=== PATIENT | female | born 1950 | race Caucasian/White ===

== ENCOUNTER 2023-07-14 22:31 | Inpatient (IN) | payer MEDICARE, MEDICAID ==
[~2023-07-14] VITALS: Ht 165.1 cm; Wt 96.5 kg
[2023-07-14] MEDS ORDERED: iohexol 350MG/ML 100ml bottle IV ONE (22:45)
[2023-07-14 23:10] LABS: BASOPHILS # (AUTO) 0.1 X10'3 (0-0.2); BASOPHILS % (AUTO) 1.4 % (0-1); EOSINOPHILS # (AUTO) 0.3 X10'3 (0-0.9); HEMATOCRIT 35.4 % (35.0-45.0); HEMOGLOBIN 11.9 g/dl (12.0-16.0); LYMPHOCYTES # (AUTO) 1.3 X10'3 (1.1-4.8); MEAN CORPUSCULAR HEMOGLOBIN 31.2 PG (27.0-31.0); MEAN CORPUSCULAR HGB CONC 33.7 g/dL (33.0-36.5); MEAN CORPUSCULAR VOLUME 92.7 FL (78-98); MEAN PLATELET VOLUME 7.5 FL (7.4-10.4); MONOCYTES # (AUTO) 0.6 X10'3 (0-0.9); MONOCYTES % (AUTO) 10.4 % (2-12); NEUTROPHILS # (AUTO) 3.8 X10'3 (1.8-7.7); NEUTROPHILS % (AUTO) 62.2 % (42-75); PLATELET COUNT 169 X10'3 (140-440); RED BLOOD COUNT 3.82 X10'6 (4.20-5.60); RED CELL DISTRIBUTION WIDTH 15.4 % (11.5-14.5); WHITE BLOOD COUNT 6.1 X10'3 (4.5-11.0)
[2023-07-14 23:15] LABS: ALBUMIN 3.7 G/DL (3.4-5.0); ANION GAP 10 (8-16); BLOOD UREA NITROGEN 51 MG/DL (7-18); BUN/CREATININE RATIO 27.4 (10.0-20.0); CALCIUM 9.7 MG/DL (8.5-10.1); CHLORIDE 103 MMOL/L (99-107); CREATININE 1.86 MG/DL (0.40-0.90); GLUCOSE 127 MG/DL (70-104); POTASSIUM 3.8 MMOL/L (3.5-5.1); SODIUM 142 MMOL/L (135-145); TOTAL CARBON DIOXIDE 29.5 MMOL/L (24-32); eCRCL 24 ML/MIN; eGFR 26 ML/MIN
[2023-07-14 23:20] LABS: APTT 26 SECONDS (22-32); PROTHROMBIN TIME 10.6 SECONDS (9.0-12.0)
[2023-07-15] VITALS (8 sets, daily range): BP systolic 115–161; BP diastolic 43–89; PULSE 63–86; RESP 15–20; TEMP 97.4–98.6; O2SAT 96–97
[2023-07-15] MEDS: normal saline 1000ml 1,000 ML IV ONE (00:22)
[2023-07-15] MEDS ORDERED: magnesium 4gm in 100ml NS 100 ML IV PRN (03:45)
[2023-07-15] MEDS ORDERED: acetaminophen 325mg tablet PO PRN (03:45)
[2023-07-15] MEDS: PERFLUTREN PROTEIN-A MICROSPHR (Optison) 0.22 MG/ML 3ML VIAL IV ONE (03:45)
[2023-07-15] MEDS ORDERED: potassium Cl 40MEQ/1/2NS 520ml 520 ML IV PRN (03:45)
[2023-07-15] MEDS ORDERED: potassium Cl 20 mEq SR tablet PO PRN ×2 (03:45)
[2023-07-15] MEDS ORDERED: mag hydrox/Alum hydrox/simeth 30ml oral suspension PO PRN (03:45)
[2023-07-15] MEDS ORDERED: magnesium Cl slow-release 64mg tablet PO PRN (03:45)
[2023-07-15] MEDS ORDERED: magnesium hydroxide 30ml (MOM) UD suspension PO PRN (03:45)
[2023-07-15] MEDS ORDERED: glucagon, human recombinant 1mg kit SUBCUT PRN (03:55)
[2023-07-15] MEDS ORDERED: DEXTROSE 15 GM of carb/4 tabs (each vial/BOTTLE has 4 tablets) PO PRN ×2 (03:55)
[2023-07-15] MEDS ORDERED: dextrose 50%-water 50ml dispensing syringe IV PRN ×2 (03:55)
[2023-07-15] MEDS ORDERED: insulin Lispro (HumaLOG) vial - multi-dose SQ SCH (03:55)
[2023-07-15] MEDS ORDERED: INSULIN LISPRO 100 UNIT/ML INSULN.PEN MULTI-DOSE SQ SCH (04:00)
[2023-07-15] MEDS: MESSAGE TO PHARMACY PO ONE (04:03)
[2023-07-15] MEDS: aspirin 325mg tablet PO ONE (04:41)
[2023-07-15] MEDS: normal saline 1000ml 1,000 ML IV SCH (04:41)
[2023-07-15 06:06] LABS: MAGNESIUM 2.9 MG/DL (1.5-2.4)
[2023-07-15 06:22] LABS: HEMOGLOBIN A1C 5.3 % (4.5-6.2)
[2023-07-15] MEDS: aspirin 81mg, enteric-coated 1 TAB TABLET.DR PO SCH (07:00)
[2023-07-15 07:25] LABS: BILIRUBIN,URINE NEGATIVE (Neg); CLARITY,URINE SLIGHTLY CLOUDY (Clear); COLOR,URINE YELLOW (Yellow); GLUCOSE, URINE NEGATIVE (Neg); KETONES,URINE NEGATIVE (Neg); LEUKOCYTE ESTERASE ,URINE MODERATE (Neg); NITRITES, URINE POSITIVE (Neg); OCCULT BLOOD,URINE TRACE-INTACT (Neg); PROTEIN,URINE NEGATIVE (Neg); UROBILINOGEN,URINE 0.2 E.U/dL (0.2-1.0)
[2023-07-15 07:46] LABS: UA COLLECTION TYPE CLN CATCH MIDSTREAM
[2023-07-15 07:47] LABS: BACTERIA,URINE 4+ /HPF (Neg); MUCUS STRANDS NONE SEEN /LPF (Neg); RBC,URINE 0-2 /HPF (0-2); SQUAMOUS EPITHELIAL CELL,UR FEW /LPF (FEW); WBC,URINE 50-100 /HPF (0-4)
[2023-07-15] MEDS: enoxaparin 40mg/0.4ml syringe SUBCUT SCH (09:24)
[2023-07-15] MEDS: CefTRIAXone/D5W-Rocephin 1gm 50 ML IV SCH (13:26)
[2023-07-15] MEDS: insulin glargine (Lantus) pen - multi-dose SQ SCH (21:00)
[2023-07-16 01:55] VITALS: BP 136/51; PULSE 77; RESP 16; TEMP 97.9; O2SAT 95
[2023-07-16] MEDS: ondansetron/PF 4mg/2ml inj IV PRN (05:45)
[2023-07-16 06:48] VITALS: BP 165/69; PULSE 71; RESP 16; TEMP 97.9; O2SAT 95
[2023-07-16 07:55] LABS: BASOPHILS # (AUTO) 0.1 X10'3 (0-0.2); BASOPHILS % (AUTO) 1.1 % (0-1); EOSINOPHILS # (AUTO) 0.2 X10'3 (0-0.9); HEMATOCRIT 30.1 % (35.0-45.0); LYMPHOCYTES # (AUTO) 0.7 X10'3 (1.1-4.8); LYMPHOCYTES % (AUTO) 13.7 % (21-51); MEAN CORPUSCULAR HGB CONC 33.3 g/dL (33.0-36.5); MEAN CORPUSCULAR VOLUME 93.3 FL (78-98); MEAN PLATELET VOLUME 7.4 FL (7.4-10.4); MONOCYTES # (AUTO) 0.5 X10'3 (0-0.9); MONOCYTES % (AUTO) 8.9 % (2-12); NEUTROPHILS # (AUTO) 3.9 X10'3 (1.8-7.7); NEUTROPHILS % (AUTO) 73.3 % (42-75); PLATELET COUNT 128 X10'3 (140-440); RED BLOOD COUNT 3.23 X10'6 (4.20-5.60); RED CELL DISTRIBUTION WIDTH 14.6 % (11.5-14.5); WHITE BLOOD COUNT 5.4 X10'3 (4.5-11.0)
[2023-07-16 08:04] LABS: ANION GAP 7 (8-16); BLOOD UREA NITROGEN 21 MG/DL (7-18); BUN/CREATININE RATIO 18.4 (10.0-20.0); CALCIUM 8.8 MG/DL (8.5-10.1); CHLORIDE 114 MMOL/L (99-107); CHOL/HDL RATIO 2.6 (0.00-4.99); CHOLESTEROL 116 MG/DL (0-200); CREATININE 1.14 MG/DL (0.40-0.90); GLUCOSE 119 MG/DL (70-104); HDL CHOLESTEROL 45 MG/DL (35-60); LDL CHOLESTEROL 50 MG/DL (50-100); MAGNESIUM 2.2 MG/DL (1.5-2.4); POTASSIUM 4.3 MMOL/L (3.5-5.1); SODIUM 145 MMOL/L (135-145); TOTAL CARBON DIOXIDE 24.5 MMOL/L (24-32); TRIGLYCERIDES 121 MG/DL (20-135); eCRCL 38 ML/MIN; eGFR 46 ML/MIN
[2023-07-16] MEDS: enoxaparin 30mg/0.3ml syringe SUBCUT SCH (08:16)
[2023-07-16 10:40] VITALS: BP_SYST 123; BP_SYST 124; BP_SYST 156; BP_DIAS 61; BP_DIAS 63; BP_DIAS 77; PULSE 92; PULSE 93; PULSE 97
[2023-07-16 11:17] LABS: ALANINE AMINOTRANSFERASE 21 U/L (12-78); ALKALINE PHOSPHATASE 78 IU/L (46-116); ASPARTATE AMINO TRANSFERASE 25 U/L (10-37); BILIRUBIN,TOTAL 0.5 MG/DL (0.1-1.0); LIPASE 47 U/L (16-77); TOTAL PROTEIN 6.1 G/DL (6.4-8.2)
[2023-07-16] MEDS: pantoprazole 40mg Tablet.DR PO SCH (11:48)
[2023-07-16] MEDS ORDERED: CELE-193 PO (14:45)
[2023-07-16] MEDS ORDERED: DILT120C88 PO (14:46)
[2023-07-16] MEDS ORDERED: APIX5TAB3 PO (14:47)
[2023-07-16] MEDS ORDERED: OLME5TAB29 (14:48)
[2023-07-16] MEDS ORDERED: TRAM50TA2 PO (14:49)
[2023-07-16] MEDS ORDERED: CLON-850 PO (14:49)
[2023-07-16] MEDS ORDERED: POTA-192 PO (14:51)
[2023-07-16] MEDS ORDERED: APRE30TA5 PO (14:51)
[2023-07-16] MEDS ORDERED: ANAS1TAB49 PO (14:52)
[2023-07-16] MEDS ORDERED: FEBU80TA3 PO (14:53)
[2023-07-16] MEDS ORDERED: TORS20TA3 PO (14:55)
[2023-07-16] MEDS ORDERED: SYN0.088T PO (14:56)
[2023-07-16] MEDS ORDERED: CYAN500T71 PO (14:58)
[2023-07-16] MEDS ORDERED: MEMA5TAB PO (14:59)
[2023-07-16] MEDS ORDERED: PANT-47 PO (15:00)
[2023-07-16] MEDS ORDERED: CARI1.5C PO (15:01)
[2023-07-16] MEDS ORDERED: SERT25TA PO (15:02)
[2023-07-16] MEDS ORDERED: FLUT1BLS4 INH (15:03)
[2023-07-16] MEDS ORDERED: ROPI4TAB22 PO (15:03)
[2023-07-16] MEDS ORDERED: ONDA4TAB12 PO (15:27)
[2023-07-16] MEDS ORDERED: LACT1CAP26 PO (15:27)
[2023-07-16] MEDS ORDERED: CEFD300C3 PO (15:27)
== END 2023-07-16 17:10 | disposition home or self-care (01) | DRG 304 ==
LOC: ER 22:32 → ED HOLD 07-15 03:46 → ORTHO 4S 07-15 07:15
PROVIDERS: ADMIT Surgery Surgical Critical Care; ATTEND Family Medicine
PROC: B33 Imaging, Upper Arteries, Magnetic Resonance Imaging (MRI) (ICD-10-PCS; principal; 2023-07-15)
DX: I16.1 Hypertensive emergency (principal); N17.0 Acute kidney failure with tubular necrosis; G45.9 Transient cerebral ischemic attack, unspecified; N39.0 Urinary tract infection, site not specified; I48.91 Unspecified atrial fibrillation; N18.9 Chronic kidney disease, unspecified; E66.9 Obesity, unspecified; E78.00 Pure hypercholesterolemia, unspecified; E11.22 Type 2 diabetes mellitus with diabetic chronic kidney disease; I12.9 Hypertensive chronic kidney disease with stage 1 through stage 4 chronic kidney disease, or unspecified chronic kidney disease; Z88.5 Allergy status to narcotic agent; Z88.1 Allergy status to other antibiotic agents; Z95.0 Presence of cardiac pacemaker; Z68.35 Body mass index [BMI] 35.0-35.9, adult; Z88.2 Allergy status to sulfonamides; Z90.710 Acquired absence of both cervix and uterus
CPT/HCPCS: 36415; 70450; 70544; 70551; 71045; 80048; 80061; 81001; 82247; 82948; 83036; 83690; 83735; 84075; 84155; 84450; 84460; 85025; 85610; 85730; 86885; 86900; 86901; 87077; 87081; 87088; 87186; 93005; 93306; 93880; 96360; 97161; 97530; 99285; A4615; G0378; J0696; J1650; J1815; J2405; J3490; J7030; Q9967

== ENCOUNTER 2024-08-31 15:11 | Emergency (ER) | payer MEDICARE, MEDICAID ==
[~2024-08-31] VITALS: Ht 165.1 cm; Wt 105.2 kg
[~2024-08-31 15:11] MED LIST: ANAS1TAB49 PO; APIX5TAB3 PO; APRE30TA5 PO; CARI1.5C PO; CELE-193 PO; CLON-850 PO; CYAN500T71 PO; DILT120C88 PO; FEBU80TA6 PO; FLUT1BLS4 INH; LACT1CAP26 PO; MEMA5TAB PO; OLME5TAB29; ONDA-243 PO; PANT-47 PO; POTA-192 PO; ROPI4TAB22 PO; SERT25TA PO; SYN0.088T PO; TORS20TA3 PO; TRAM50TA2 PO
[2024-08-31 15:29] VITALS: BP 117/63; PULSE 68; RESP 18; O2SAT 93
[2024-08-31 15:58] LABS: BILIRUBIN,URINE NEGATIVE (Neg); CLARITY,URINE SLIGHTLY CLOUDY (Clear); COLOR,URINE YELLOW (Yellow); GLUCOSE, URINE NEGATIVE (Neg); KETONES,URINE NEGATIVE (Neg); LEUKOCYTE ESTERASE ,URINE SMALL (Neg); NITRITES, URINE POSITIVE (Neg); OCCULT BLOOD,URINE NEGATIVE (Neg); PROTEIN,URINE NEGATIVE (Neg)
[2024-08-31 16:04] LABS: UA COLLECTION TYPE CLN CATCH MIDSTREAM
[2024-08-31 16:05] LABS: BACTERIA,URINE 4+ /HPF (Neg); MUCUS STRANDS NONE SEEN /LPF (Neg); RBC,URINE 0-2 /HPF (0-2); SQUAMOUS EPITHELIAL CELL,UR FEW /LPF (FEW); WBC CLUMPS,URINE FEW /HPF (NEGATIVE)
--- NOTE | 2024-08-31 19:02 | Physician Documentation ---
History of Present Illness ~ Chief Complaint: Urinary Symptoms Stated Complaint: KIDNEY PAIN Time Seen by MD: 18:12 OK to notify your PCP?: Yes Source: patient Mode of Arrival: POV Exam Limitations: no limitations DANNY Daley is a 74-year-old female with bilateral flank pain for the past 3-4 days. She has been admitted twice last year for urinary tract infections. She states that she never has any bladder/urinary symptoms and can tell when she has a urinary urinary tract infection once she has flank pain. She reports having a fever last night and was also nauseous which she self treated with Zofran and had relief. Denies any abdominal pain, pain with urination or diarrhea. She mentions that she has stage 3 kidney disease. Medication Reconciliation Allergies: Coded Allergies: erythromycin base (Unverified Allergy, Severe, ANAPHYLAXIS, 10/08/23) Sulfa (Sulfonamide Antibiotics) (Unverified Allergy, Intermediate, HIVES, 10/08/23) tetanus and diphtheria toxoids (Unverified Allergy, Intermediate, HIVES, 10/08/23) codeine (Verified Allergy, Unknown, 10/08/23) Uncoded Allergies: ERYTHROMYCIN (Allergy, Unknown, 07/14/23) SULFA (Allergy, Unknown, 07/14/23) Scheduled Anastrozole (Arimidex), 1 TAB PO DAILY, (Reported) Apixaban (Eliquis), 5 MG PO BID, (Reported) Apremilast (Otezla), 1 TAB PO Q12H, (Reported) Cariprazine Hydrochloride (Vraylar), 1 CAP PO MWF, (Reported) Celecoxib* (Celebrex*), 100 MG PO BID, (Reported) Ciprofloxacin HCl (Cipro), 1 TAB PO Q12H Cyanocobalamin* (Vitamin B-12*), 2 TAB PO BID, (Reported) Diltiazem Hcl (Cardizem Cd), 1 CAP PO DAILY, (Reported) Febuxostat (Febuxostat), 1 TAB PO DAILY, (Reported) Fluticasone/Umeclidin/Vilanter (Trelegy Ellipta 100-62.5-25), 1 PUFFS INH DAILY, (Reported) Lactobacillus Rhamnosus (Culturelle), 1 CAP PO DAILY Levothyroxine Sodium* (Synthroid*), 1 TAB PO DAILY, (Reported) Memantine Hcl* (Namenda*), 2 TAB PO BID, (Reported) Olmesartan Medoxomil (Olmesartan Medoxomil), DAILY, (Reported) Pantoprazole Sodium (PROTONIX tablet), 1 TAB PO DAILY, (Reported) Potassium Chloride (Klor-Con), 2 TAB PO BID, (Reported) Ropinirole Hcl (Ropinirole Hcl), 1 TAB PO TID, (Reported) Sertraline Hcl* (Zoloft*), 4 TAB PO DAILY, (Reported) Scheduled PRN Clonazepam (Klonopin), 1 TAB PO HSMR1 PRN for anxiety, (Reported) ONDANSETRON ODT 4mg tablet (Ondansetron Odt), 4 MG PO TID PRN for nausea/vomiting Torsemide (Torsemide), 2 TAB PO DAILY PRN for SOB or wheezing, (Reported) Tramadol HCl (Tramadol HCl), 1 TAB PO Q12H PRN PRN for pain, (Reported) Discontinued Medications Ciprofloxacin/Ciprofloxa Hcl (Ciprofloxacin Er 500 Mg Tablet), 1 TAB PO Q12H Discontinued Reason: Other Past Medical History Past Medical History: Atrial Fibrillation, Renal Disease Past Surgical History: noncontributory Smoking Status: Former smoker Alcohol Use: None Drug Use: none Lives with: Spouse Lives In: Home Occupation: retired Review of Systems All Other Systems at this time: Reviewed and Negative Physical Exam Vital Signs: RN Vital Signs have been reviewed: Yes, Temperature: 97.5, Source: Oral, Heart Rate: 68, Respiratory Rate: 18, BP: 117/63, Pulse Oximetry: 93, Weight: 105.230 Physical Exam General: conscious, coherent, non-toxic appearing, follows commands appropriately and in no apparent distress. Skin: Warm and dry without rash, good texture, and turgor. Chest: Good expansion without retractions or grunting. Lungs are clear to ausc ultation bilaterally. Heart: Regular rate and rhythm. S1 and S2 are normal. No murmurs, rubs, clicks, or gallops heard. Abdomen: Soft, nontender, no masses or organomegaly. Bowel sounds are active. Back: No spinal tenderness. Bilateral costovertebral angle tenderness. Extremities: Full range of motion. Good strength, bilaterally. No cyanosis, clubbing or edema. Peripheral pulses are intact. Neurologic: A&Ox4. Motor and sensory exam nonfocal. Moves all extremities. Speech is clear. Gait normal. CN II to XII intact. Progress Results/Orders Reviewed/noted all lab results: Yes Results/Orders Completed Orders - KIMBERLY BOWMAN [employer] Acetaminophen 325mg Tablet (Tylenol Tabl (08/31/24 18:25) Cbc/Diff (08/31/24 18:24) CMP (08/31/24 18:24) Ceftriaxone 2gm/D5w 50ml Bag (Rocephin 2 (08/31/24 18:25) Normal Saline 1000ml (Sodium Chloride 10 (08/31/24 18:25) Vital Signs 08/31/24 08/31/24 15:29 21:02 Temp 97.5 97.5 Pulse 68 Resp 18 B/P (MAP) 117/63 Pulse Ox 93 Laboratory Tests Test 08/31/24 15:34 08/31/24 19:13 Urine Specimen Description Cln catch midstream Urine Color Yellow Urine Clarity Slightly cloudy Urine pH 6.0 Urine Specific [place] 1.015 Urine Protein Negative Urine Glucose (UA) Negative Urine Ketones Negative Urine Occult Blood Negative Urine Nitrite Positive H Urine Bilirubin Negative Urine Urobilinogen 1.0 Urine Leukocyte Esterase Small H Urine RBC 0-2 Urine WBC 5-10 H Urine WBC Clumps Few Urine Squamous Epithelial Cells Few Urine Bacteria 4+ Urine Mucus None seen Urine Culture Indicated Indicated Volume Urine Centrifuged 10 ml Urine Comment White Blood Count 5.6 Red Blood Count 3.60 L Hemoglobin 11.6 L Hematocrit 34.0 L Mean Corpuscular Volume 94.5 Mean Corpuscular Hemoglobin 32.3 H Mean Corpuscular Hemoglobin Concent 34.1 Red Cell Distribution Width 15.1 H Platelet Count 132 L Mean Platelet Volume 7.2 L Neutrophils (%) (Auto) 77.5 H Lymphocytes (%) (Auto) 12.5 L Monocytes (%) (Auto) 8.8 Eosinophils (%) (Auto) 0.8 Basophils (%) (Auto) 0.4 Neutrophils # (Auto) 4.3 Lymphocytes # (Auto) 0.7 L Monocytes # (Auto) 0.5 Eosinophils # (Auto) 0.0 Basophils # (Auto) 0.0 CBC Comment Sodium Level 147 H Potassium Level 3.8 Chloride Level 108 H Carbon Dioxide Level 29.6 Anion Gap 9 Blood Urea Nitrogen 23 H Creatinine 1.29 H Estimated GFR/1.73 m2 40 BUN/Creatinine Ratio 17.8 Glucose Level 105 H Calcium Level 8.6 Total Bilirubin 1.2 H Aspartate Amino Transf (AST/SGOT) 24 Alanine Aminotransferase (ALT/SGPT) 26 Alkaline Phosphatase 95 Total Protein 6.5 Albumin 3.4 Globulin 3.1 Albumin/Globulin Ratio 1.1 Chemistry Comments Microbiology Date/Time Source Procedure Growth Status 08/31/24 16:05 Urine Clean Catch Midstream Urine Culture - Final Klebsiella Pneumoniae Complete Medical Decision Making Findings Thuy is a 74-year-old female presenting with bilateral flank pain for the past 3-4 days. She was admitted twice last year for urinary tract infections which required IV antibiotics. Last night she had a fever and nausea which he treated with Zofran at home. She otherwise looks nontoxic is afebrile and not tachycardic. I consulted with Dr. Hooker regarding this patient and the possible need for admission versus outpatient treatment to her age and history. He recommended we give IV Rocephin get a CBC and CMP, give Iv fluids and Toradol for pain relief which were all ordered. Due to this patient's history of kidney disease, Tylenol was ordered instead for pain relief. Her CBC is negative for infection, her CMP shows some mild dehydration and elevated BUN and creatinine with a GFR of 40 which is consistent with her history of having kidney disease. Her urinalysis is positive for UTI with positive nitrites, leukocyte esterase, WBCs and a urine culture was ordered and indicated. Using shared decision-making with the patient she is comfortable with going home on oral antibiotics with strict return instructions should she become altered, have a fever, malaise, or any new or worsening symptoms. She should follow up with her primary care provider and get a repeat urinalysis after her antibiotics are finished to make sure the infection is cleared. She understands that her culture for the urine takes about 3 days or so to grow and we will call her if the antibiotic I prescribed shows resistance. When looking at her previous urine culture, no resistance was shown to any of the antibiotics so I am optimistic that there will be no resistance to the ciprofloxacin. We also discussed that ciprofloxacin increases your risk of tendon rupture especially in the Achilles tendon up to 6 months after starting the antibiotic a nd she agrees to this risk. She should treat her pain with Tylenol at home not ibuprofen and she agrees with this as well. She was advised to take all antibiotics as prescribed and finish the course and take a probiotic as well to mitigate the risk of GI upset from this antibiotic. Urinary Diff Dx:Considerations: Include: Musculoskeletal pain, Renal failure, Urolithiasis, Urinary retention, UTI Departure Disposition: HOME / SELF CARE / HOMELESS Impression: Primary Impression: Acute pyelonephritis Condition: Stable Additional Instructions: Please take antibiotics as prescribed and finish the course. Follow up with your primary care provider in the next 3 days. You have been warned that there is an increased risk with this medication of Achilles rupture or other tendon rupture up to 6 months after taking this medication. Please return to us if you have any new or worsening symptoms, fevers, altered level of consciousness, or fast heart rate. Plenty of fluids, take a probiotic as well. Referrals: NO PRIMARY CARE PROVIDER (PCP) Prescriptions Ciprofloxacin HCl (Cipro) 500 Mg Tablet 1 TAB PO Q12H for 10 Days, #20 TAB Prov: KIMBERLY BOWMAN 08/31/24 Education Educated: Patient Educated regarding: diagnosis, treatment, prognosis, need for follow up Signature Scribe Signature: . Attestation: Scribed for Kimberly Bowman by Kimberly Lugo NP . 09/03/24 15:01 KIMBERLY BOWMAN August 31, 2024 19:02
[2024-08-31] MEDS: normal saline 1000ML IV soln IVB ONE (19:06)
[2024-08-31] MEDS: acetaminophen 325mg tablet PO ONE (19:06)
[2024-08-31 19:20] LABS: BASOPHILS % (AUTO) 0.4 % (0-1); EOSINOPHILS % (AUTO) 0.8 % (0-6); HEMOGLOBIN 11.6 g/dl (12.0-16.0); LYMPHOCYTES # (AUTO) 0.7 X10'3 (1.1-4.8); LYMPHOCYTES % (AUTO) 12.5 % (21-51); MEAN CORPUSCULAR HEMOGLOBIN 32.3 PG (27.0-31.0); MEAN CORPUSCULAR HGB CONC 34.1 g/dL (33.0-36.5); MEAN CORPUSCULAR VOLUME 94.5 FL (78-98); MEAN PLATELET VOLUME 7.2 FL (7.4-10.4); MONOCYTES # (AUTO) 0.5 X10'3 (0-0.9); MONOCYTES % (AUTO) 8.8 % (2-12); NEUTROPHILS # (AUTO) 4.3 X10'3 (1.8-7.7); NEUTROPHILS % (AUTO) 77.5 % (42-75); PLATELET COUNT 132 X10'3 (140-440); RED CELL DISTRIBUTION WIDTH 15.1 % (11.5-14.5); WHITE BLOOD COUNT 5.6 X10'3 (4.5-11.0)
[2024-08-31 19:41] LABS: ALANINE AMINOTRANSFERASE 26 U/L (12-78); ALBUMIN 3.4 G/DL (3.4-5.0); ALBUMIN/GLOBULIN RATIO 1.1 (1.1-1.5); ALKALINE PHOSPHATASE 95 IU/L (46-116); ANION GAP 9 (8-16); ASPARTATE AMINO TRANSFERASE 24 U/L (10-37); BILIRUBIN,TOTAL 1.2 MG/DL (0.1-1.0); BLOOD UREA NITROGEN 23 MG/DL (7-18); BUN/CREATININE RATIO 17.8 (10.0-20.0); CALCIUM 8.6 MG/DL (8.5-10.1); CHLORIDE 108 MMOL/L (99-107); CREATININE 1.29 MG/DL (0.40-0.90); GLUCOSE 105 MG/DL (70-104); POTASSIUM 3.8 MMOL/L (3.5-5.1); SODIUM 147 MMOL/L (135-145); TOTAL CARBON DIOXIDE 29.6 MMOL/L (24-32); TOTAL PROTEIN 6.5 G/DL (6.4-8.2); eCRCL 33 ML/MIN; eGFR 40 ML/MIN
[2024-08-31] MEDS: CefTRIAXone 2gm/D5W 50ml BAG 50 ML IV ONE (19:56)
[2024-08-31] MEDS ORDERED: CIPR-20 PO (20:52)
[2024-08-31] MEDS ORDERED: CIPR-259 PO (20:55)
[2024-08-31 21:02] VITALS: TEMP 97.5
== END 2024-08-31 21:03 | disposition home or self-care (01) ==
LOC: ER 15:11
DX: N10 Acute pyelonephritis (principal); I48.91 Unspecified atrial fibrillation; Z88.1 Allergy status to other antibiotic agents; Z88.2 Allergy status to sulfonamides; Z88.5 Allergy status to narcotic agent; Z79.899 Other long term (current) drug therapy
CPT/HCPCS: 36415; 80053; 81001; 85025; 87077; 87088; 87186; 96361; 96365; 99284; J0696; J7030

== ENCOUNTER 2024-09-25 13:54 | Inpatient (IN) | payer MEDICARE, MEDICAID ==
[~2024-09-25] VITALS: Ht 165.1 cm; Wt 104.5 kg
[2024-09-25 15:08] LABS: BASOPHILS % (AUTO) 0.9 % (0-1); EOSINOPHILS # (AUTO) 0.1 X10'3 (0-0.9); EOSINOPHILS % (AUTO) 2.2 % (0-6); HEMOGLOBIN 11.1 g/dl (12.0-16.0); LYMPHOCYTES # (AUTO) 0.9 X10'3 (1.1-4.8); LYMPHOCYTES % (AUTO) 17.6 % (21-51); MEAN CORPUSCULAR HEMOGLOBIN 31.3 PG (27.0-31.0); MEAN CORPUSCULAR HGB CONC 33.5 g/dL (33.0-36.5); MEAN CORPUSCULAR VOLUME 93.3 FL (78-98); MEAN PLATELET VOLUME 7.5 FL (7.4-10.4); MONOCYTES # (AUTO) 0.4 X10'3 (0-0.9); MONOCYTES % (AUTO) 8.5 % (2-12); NEUTROPHILS # (AUTO) 3.6 X10'3 (1.8-7.7); NEUTROPHILS % (AUTO) 70.8 % (42-75); PLATELET COUNT 119 X10'3 (140-440); RED BLOOD COUNT 3.54 X10'6 (4.20-5.60); RED CELL DISTRIBUTION WIDTH 14.7 % (11.5-14.5); WHITE BLOOD COUNT 5.1 X10'3 (4.5-11.0)
[2024-09-25 15:23] LABS: ALANINE AMINOTRANSFERASE 22 U/L (12-78); ALBUMIN 3.2 G/DL (3.4-5.0); ALKALINE PHOSPHATASE 79 IU/L (46-116); ANION GAP 8 (8-16); ASPARTATE AMINO TRANSFERASE 21 U/L (10-37); BILIRUBIN,TOTAL 1.1 MG/DL (0.1-1.0); BLOOD UREA NITROGEN 18 MG/DL (7-18); BUN/CREATININE RATIO 17.6 (10.0-20.0); CALCIUM 8.8 MG/DL (8.5-10.1); CHLORIDE 106 MMOL/L (99-107); CREATININE 1.02 MG/DL (0.40-0.90); GLUCOSE 103 MG/DL (70-104); LIPASE 45 U/L (16-77); POTASSIUM 3.4 MMOL/L (3.5-5.1); SODIUM 145 MMOL/L (135-145); TOTAL CARBON DIOXIDE 30.6 MMOL/L (24-32); TOTAL PROTEIN 6.5 G/DL (6.4-8.2); eCRCL 42 ML/MIN; eGFR 53 ML/MIN
--- NOTE | 2024-09-25 15:31 | Physician Documentation ---
History of Present Illness Chief Complaint: Abdominal Pain Stated Complaint: DIVERTICULITIS Time Seen by MD: 14:29 HPI This is a 74-year-old female with history of diverticulitis it presents with three days of progressively worsening left lower quadrant abdominal pain that she describes similar to previous episodes of diverticulitis, patient reports small hard stools in the past three days as well though is passing stool and gas still. Patient reports no vomiting. Patient reports chills but no fever. Medication Reconciliation Allergies: Coded Allergies: erythromycin base (Unverified Allergy, Severe, ANAPHYLAXIS, 10/08/23) Sulfa (Sulfonamide Antibiotics) (Unverified Allergy, Intermediate, HIVES, 10/08/23) tetanus and diphtheria toxoids (Unverified Allergy, Intermediate, HIVES, 10/08/23) codeine (Verified Allergy, Unknown, 10/08/23) Uncoded Allergies: ERYTHROMYCIN (Allergy, Unknown, 07/14/23) SULFA (Allergy, Unknown, 07/14/23) Scheduled Apixaban (Eliquis), 5 MG PO BID, (Reported) Cariprazine Hydrochloride (Vraylar), 1 CAP PO MWF, (Reported) Cyanocobalamin* (Vitamin B-12*), 2 TAB PO BID, (Reported) Diltiazem Hcl (Cardizem Cd), 1 CAP PO DAILY, (Reported) Fluticasone/Umeclidin/Vilanter (Trelegy Ellipta 100-62.5-25), 1 PUFFS INH DAILY, (Reported) Lactobacillus Rhamnosus (Culturelle), 1 CAP PO DAILY Levothyroxine Sodium* (Synthroid*), 1 TAB PO DAILY, (Reported) Memantine Hcl* (Namenda*), 2 TAB PO BID, (Reported) Olmesartan Medoxomil (Olmesartan Medoxomil), DAILY, (Reported) Potassium Chloride (Klor-Con), 2 TAB PO BID, (Reported) Ropinirole Hcl (Ropinirole Hcl), 1 TAB PO TID, (Reported) Sertraline Hcl* (Zoloft*), 4 TAB PO DAILY, (Reported) Scheduled PRN Clonazepam (Klonopin), 1 TAB PO HSMR1 PRN for anxiety, (Reported) ONDANSETRON ODT 4mg tablet (Ondansetron Odt), 4 MG PO TID PRN for nausea/vomiting Torsemide (Torsemide), 2 TAB PO DAILY PRN for SOB or wheezing, (Reported) Tramadol HCl (Tramadol HCl), 1 TAB PO Q12H PRN PRN for pain, (Reported) Discontinued Medications Anastrozole (Arimidex), 1 TAB PO DAILY, (Reported) Discontinued Reason: patient no longer taking Apremilast (Otezla), 1 TAB PO Q12H, (Reported) Discontinued Reason: patient no longer taking Celecoxib* (Celebrex*), 100 MG PO BID, (Reported) Discontinued Reason: patient no longer taking Febuxostat (Febuxostat), 1 TAB PO DAILY, (Reported) Discontinued Reason: patient no longer taking Pantoprazole Sodium (PROTONIX tablet), 1 TAB PO DAILY, (Reported) Discontinued Reason: patient no longer taking Past Medical History Past Medical History: Atrial Fibrillation, Diverticulitis, Renal Disease Past Surgical History: noncontributory Alcohol Use: None Drug Use: none Lives with: Spouse Lives In: Home Occupation: retired Review of Systems ROS Lower quadrant abdominal pain as stated above in the HPI, otherwise all systems are reviewed and negative. Physical Exam Vital Signs: Temperature: 97.6, Source: Temporal, Heart Rate: 73, Respiratory Rate: 15, BP: 149/59, Pulse Oximetry: 95, Weight: 104.550 Oxygen Flow Rate: 0 Physical Exam VITALS: Reviewed and as above. GENERAL: Alert, nontoxic appearing, no apparent distress. RESPIRATORY: No increased work of breathing, no respiratory distress, speaking in full clear sentences, clear lung sounds in all singh CV: Regular rate and rhythm no murmur BACK: No CVA tenderness GI: Left lower quadrant tender to palpation, no rebound, no guarding. Soft, nondistended, bowel sounds present Progress Progress Note At approximately 1928: I spoke with hospitalist resident Dr. Capps who kindly accepts patient for admission Results/Orders Results/Orders Vital Signs 09/25/24 09/25/24 14:00 14:31 Temp 97.6 Pulse 73 Resp 18 15 B/P (MAP) 149/59 Pulse Ox 95 O2 Flow Rate 0 Laboratory Tests Test 09/25/24 14:54 White Blood Count 5.1 Red Blood Count 3.54 L Hemoglobin 11.1 L Hematocrit 33.0 L Mean Corpuscular Volume 93.3 Mean Corpuscular Hemoglobin 31.3 H Mean Corpuscular Hemoglobin Concent 33.5 Red Cell Distribution Width 14.7 H Platelet Count 119 L Mean Platelet Volume 7.5 Neutrophils (%) (Auto) 70.8 Lymphocytes (%) (Auto) 17.6 L Monocytes (%) (Auto) 8.5 Eosinophils (%) (Auto) 2.2 Basophils (%) (Auto) 0.9 Neutrophils # (Auto) 3.6 Lymphocytes # (Auto) 0.9 L Monocytes # (Auto) 0.4 Eosinophils # (Auto) 0.1 Basophils # (Auto) 0.0 CBC Comment Sodium Level 145 Potassium Level 3.4 L Chloride Level 106 Carbon Dioxide Level 30.6 Anion Gap 8 Blood Urea Nitrogen 18 Creatinine 1.02 H Estimated GFR/1.73 m2 53 BUN/Creatinine Ratio 17.6 Glucose Level 103 Calcium Level 8.8 Total Bilirubin 1.1 H Aspartate Amino Transf (AST/SGOT) 21 Alanine Aminotransferase (ALT/SGPT) 22 Alkaline Phosphatase 79 Total Protein 6.5 Albumin 3.2 L Globulin 3.3 Albumin/Globulin Ratio 1.0 L Lipase 45 Chemistry Comments EKG/XRAY/CT/US/VASC/MRI CT : Impression EXAM: CT Abdomen and Pelvis With Intravenous Contrast CLINICAL INDICATION: Left lower quadrant abdominal pain,History of diverticulosis and diverticul TECHNIQUE: Axial computed tomography images of the abdomen and pelvis with intravenous contrast. This CT exam was performed using one or more of the following dose reduction techniques: automated exposure control, adjustment of the mA and/or kV according to patient size, and/or use of iterative reconstruction technique. CONTRAST: COMPARISON: None FINDINGS: LUNG BASES: Unremarkable. No mass. No consolidation. MEDIASTINUM: Small esophageal hiatal hernia. ABDOMEN: LIVER: Hepatomegaly with fatty infiltration. GALLBLADDER AND BILE DUCTS: Unremarkable. No calcified stones. No ductal dilation. PANCREAS: Unremarkable. No mass. No ductal dilation. SPLEEN: Unremarkable. No splenomegaly. ADRENALS: Unremarkable. No mass. KIDNEYS AND URETERS: Renal cysts, bilaterally. No hydronephrosis. STOMACH AND BOWEL: Mild acute diverticulitis of the sigmoid colon. No perforation, abscess or obstruction. Fecal retention in the colon consistent with constipation. PELVIS: APPENDIX: No findings to suggest acute appendicitis. BLADDER: Unremarkable. No mass. REPRODUCTIVE: Unremarkable as visualized. ABDOMEN and PELVIS: INTRAPERITONEAL SPACE: Unremarkable. No free air. No significant fluid collection. BONES/JOINTS: No acute fracture. No dislocation. SOFT TISSUES: Unremarkable. VASCULATURE: Scattered calcified atherosclerotic disease of aorta. No abdominal aortic aneurysm. LYMPH NODES: Unremarkable. No enlarged lymph nodes. OTHER FINDINGS: . . . IMPRESSION: 1. Mild acute diverticulitis of the sigmoid colon. No perforation, abscess or obstruction. 2. Small esophageal hiatal hernia. 3. Hepatomegaly with fatty infiltration. 4. Fecal retention in the colon consistent with constipation. 5. Renal cysts, bilaterally. Electronically Signed by:JOSETTE MEADE MD Date & Time: 09/25/241704 Dictated by: JOSETTE MEADE MD Dictation date and time: 09/25/241704 I have reviewed and agree with the radiology report. I have reviewed and interpreted the imaging as: no intraperitoneal free air Medical Decision Making Findings This is a 74-year-old female with history of diverticulitis who presented with left lower quadrant abdominal pain described in the pain is similar to previous sepsis diverticulitis, CT was obtained and did demonstrate evidence of diverticulitis without perforation or abscess, patient's lab work did not demonstrate evidence of systemic infection or electrolyte or metabolic derangement. Patient is hemodynamically stable and afebrile. Patient would benefit from inpatient admission for IV antibiotics and pain management, with shared decision-making patient has a preference for inpatient admission. Hospitalist team contacted and kindly accepts patient for admission. Differential Dx:Considerations: Include: Bowel obstruction, Cholangitis, Cholelithasis, Constipation, Diverticular disease, Esophageal rupture, Esophagitis, Gastritis/PUD, Gastroenteritis, Hernia, Inflammatory BD, Pancreatitis, Urinary obstruction, Urinary tract infection, Urolithiasis, Other (Bowel perforation, bowel abscess) Departure Disposition: 09 ADMITTED INPATIENT Admitted to Inpatient Unit: to hospitalist Impression: Primary Impression: Diverticulitis large intestine w/o perforation or abscess w/bleeding Referrals: NO PRIMARY CARE PROVIDER (PCP) Education Educated: Patient Educated regarding: diagnosis, treatment, prognosis, need for follow up Signature Scribe Signature: No scribe Attestation: The note accurately reflects work and decisions made by me.TRUONG Cheng 09/26/24 03:14 KELLEY TORRES Sep 25, 2024 15:31
[2024-09-25] MEDS ORDERED: iohexol 300mg/ml 100ml inj. ONE (16:06)
--- NOTE | 2024-09-25 17:08 | RADIOLOGY REPORT ---
EXAM: CT Abdomen and Pelvis With Intravenous Contrast CLINICAL INDICATION: Left lower quadrant abdominal pain,History of diverticulosis and diverticul TECHNIQUE: Axial computed tomography images of the abdomen and pelvis with intravenous contrast. [facility] CT exam was performed using one or more of the following dose reduction techniques: automated exp osure control, adjustment of the mA and/or kV according to patient size, and/or use of iterative donte nstruction technique. CONTRAST: COMPARISON: None FINDINGS: LUNG BASES: Unremarkable. No mass. No consolidation. MEDIASTINUM: Small esophageal hiatal hernia. ABDOMEN: LIVER: Hepatomegaly with fatty infiltration. GALLBLADDER AND BILE DUCTS: Unremarkable. No calcified stones. No ductal dilation. PANCREAS: Unremarkable. No mass. No ductal dilation. SPLEEN: Unremarkable. No splenomegaly. ADRENALS: Unremarkable. No mass. KIDNEYS AND URETERS: Renal cysts, bilaterally. No hydronephrosis. STOMACH AND BOWEL: Mild acute diverticulitis of the sigmoid colon. No perforation, abscess or obst ruction. Fecal retention in the colon consistent with constipation. PELVIS: APPENDIX: No findings to suggest acute appendicitis. BLADDER: Unremarkable. No mass. REPRODUCTIVE: Unremarkable as visualized. ABDOMEN and PELVIS: INTRAPERITONEAL SPACE: Unremarkable. No free air. No significant fluid collection. BONES/JOINTS: No acute fracture. No dislocation. SOFT TISSUES: Unremarkable. VASCULATURE: Scattered calcified atherosclerotic disease of aorta. No abdominal aortic aneurysm. LYMPH NODES: Unremarkable. No enlarged lymph nodes. OTHER FINDINGS: . . . IMPRESSION: 1. Mild acute diverticulitis of the sigmoid colon. No perforation, abscess or obstruction. 2. Small esophageal hiatal hernia. 3. Hepatomegaly with fatty infiltration. 4. Fecal retention in the colon consistent with constipation. 5. Renal cysts, bilaterally.
[2024-09-25] MEDS: CefTRIAXone 2gm/D5W 50ml BAG 50 ML IV ONE (19:16)
[2024-09-25] MEDS: acetaminophen 1,000mg/100ml IV 100 ML IV SCH (19:17)
[2024-09-25] MEDS: metroNIDAZOLE-Flagyl 500mg/NS 100 ML IV ONE (19:17)
[2024-09-25 21:25] LABS: BILIRUBIN,URINE NEGATIVE (Neg); CLARITY,URINE CLEAR (Clear); COLOR,URINE YELLOW (Yellow); GLUCOSE, URINE NEGATIVE (Neg); KETONES,URINE NEGATIVE (Neg); LEUKOCYTE ESTERASE ,URINE NEGATIVE (Neg); NITRITES, URINE NEGATIVE (Neg); OCCULT BLOOD,URINE NEGATIVE (Neg); PROTEIN,URINE NEGATIVE (Neg)
[2024-09-25 21:30] VITALS: BP 157/43; PULSE 73; RESP 16; TEMP 98.3; O2SAT 96
[2024-09-25 21:31] LABS: UA COLLECTION TYPE CLN CATCH MIDSTREAM
[2024-09-25 22:00] VITALS: RESP 18; O2SAT 95
[2024-09-25] MEDS ORDERED: acetaminophen 325mg tablet PO PRN (22:35)
[2024-09-25] MEDS ORDERED: potassium Cl 20 mEq SR tablet PO PRN (22:35)
[2024-09-25] MEDS ORDERED: magnesium hydroxide 30ml (MOM) UD suspension PO PRN (22:35)
[2024-09-25] MEDS ORDERED: morphine 2 MG/ML inj. syringe IV PRN (22:35)
[2024-09-25] MEDS ORDERED: potassium Cl 40MEQ/1/2NS 520ml 520 ML IV PRN (22:35)
[2024-09-25] MEDS ORDERED: magnesium Cl slow-release 64mg tablet PO PRN (22:35)
[2024-09-25] MEDS ORDERED: magnesium sulf-water 2g/50mL 50 ML IV PRN (22:35)
[2024-09-25] MEDS ORDERED: mag hydrox/Alum hydrox/simeth 30ml oral suspension PO PRN (22:35)
[2024-09-25] MEDS ORDERED: magnesium sulf-water 4G/100mL 100 ML IV PRN (22:35)
[2024-09-25] MEDS ORDERED: HYDROcodone/acetaminophen 5mg/325mg tablet PO PRN (22:35)
--- NOTE | 2024-09-25 23:06 | HISTORY AND PHYSICAL-Residence ---
History & Physical Providers to CC Resident Creating Document: NIK WHITE, RES CC: DALJIT SALOMON MD ~ History of Present Illness Reason for Admit\Complaint: ABDOMINAL PAIN SINCE THREE DAYS History of Present Illness A 74-year-old female with past medical history of AFib status post pacemaker placement, CKD stage IIIB presented to the ED with pain in the left lower quadrant associated with nausea. Patient states that she had dull and aching constant pain in her left lower abdominal with a severity of 8/10 since last three days, with no radiation or aggravating or relieving factors. Patient has associated nausea and fever with the highest noted as 101 F since last two days. Patient also has associated chills but denies vomitings and diarrhea. Patient had been dealing with similar episodes since age of 18 years. Patient underwent upper GI endoscopy Dr. Mahajan but does not remember the findings and colonoscopy four years ago which revealed polyps and diverticulitis. Allergies: Coded Allergies: erythromycin base (Unverified Allergy, Severe, ANAPHYLAXIS, 10/08/23) Sulfa (Sulfonamide Antibiotics) (Unverified Allergy, Intermediate, HIVES, 10/08/23) tetanus and diphtheria toxoids (Unverified Allergy, Intermediate, HIVES, 10/08/23) codeine (Verified Allergy, Unknown, 10/08/23) Uncoded Allergies: ERYTHROMYCIN (Allergy, Unknown, 07/14/23) SULFA (Allergy, Unknown, 07/14/23) Home Medications Home Medications Active Culturelle (Lactobacillus Rhamnosus) 10 Billion Cell Capsule 1 Cap PO DAILY 30 Days Ondansetron Odt (Ondansetron HCl) 4 Mg Tab.rapdis 4 Mg PO TID PRN 10 Days Reported Trelegy Ellipta 100-62.5-25 (Fluticasone/Umeclidin/Vilanter) 100-62.5 Blst.w.dev 1 Puffs INH DAILY 30 Days Ropinirole Hcl 4 Mg Tab.er.24h 1 Tab PO TID 30 Days Zoloft* (Sertraline HCl) 25 Mg Tablet 4 Tab PO DAILY 30 Days Vraylar (Cariprazine Hydrochloride) 1.5 Mg Capsule 1 Cap PO MWF 30 Days Namenda* (Memantine) 5 Mg Tablet 2 Tab PO BID Vitamin B-12* (Cyanocobalamin) 500 Mcg Tablet 2 Tab PO BID Synthroid* (Levothyroxine Sodium) 88 Mcg Tablet 1 Tab PO DAILY 30 Days Torsemide 20 Mg Tablet 2 Tab PO DAILY PRN 30 Days Klor-Con (Potassium Chloride) 10 Meq Tab.prt.sr 2 Tab PO BID Tramadol HCl 50 Mg Tablet 1 Tab PO Q12H PRN PRN 30 Days Klonopin (Clonazepam) 0.5 Mg Tablet 1 Tab PO HSMR1 PRN 30 Days Olmesartan Medoxomil 5 Mg Tablet DAILY Eliquis (Apixaban) 5 Mg Tablet 5 Mg PO BID Cardizem Cd (Diltiazem Hcl) 120 Mg Cap.sr.24h 1 Cap PO DAILY 30 Days Past Medical History Past Medical History AFib status post pacemaker placement Stage III CKD HTN HLD Sleep apnea noncompliant with CPAP Bladder cancer status post chemotherapy in 2013 Past Surgical History Surgical History Comment Cholecystectomy Mastectomy bilateral Hysterectomy Bilateral knee surgeries Past Social History Social History Comment Lives at home with a partner Sees Dr. Joaquin for Cardiology and Dr. Dee at [facility] for Nephrology Former smoker of one pack per day for the last 50 years and quit 14 years ago Denies marijuana or illicit drug use or alcohol Smoking: Non-Smoker Alcohol Use: None Drug Use: None Lives with: Spouse Lives In: Home Occupation: retired ROS ROS All other systems reviewed in full and negative except for the pertinent positives mentioned in the HPI Exam Vitals: Vital Signs Date Time Temp Pulse Resp B/P (MAP) Pulse Ox O2 Delivery O2 Flow Rate FiO2 09/25/24 16:39 62 16 127/42 (70) 97 0 09/25/24 14:00 97.6 General: General: Elderly morbidly obese female, Alert, awake, oriented, not in acute distress HEENT: PERRLA, no icterus, pallor, lymphadenopathy, carotid bruit Respiratory system: Bilateral vesicular breath sounds heard, no adventitious breath sounds CVS: S1-S2 heard, no murmurs/rubs/gallop GI: Tenderness in the right upper and left lower quadrant, Soft, no organomegaly, no guarding/rigidity, bowel sounds present Neuro: No focal neurological deficits present Extremities: No edema cyanosis clubbing/deformities Skin: Warm and dry Diagnostic Data Last Recorded Lab Results: 09/25/24 1454 09/25/24 1454 Advance Care Planning Advanced Care plannin - 30 Minutes (I spent 20 minutes discussing various resuscitative measures and the patient decided to be full code) Additional Plan Assessment: A 74-year-old female with a past medical history of AFib status post pacemaker placement, stage IIIB CKD presented to the ED with abdominal pain and nausea associated with fever and chills patient is admitted for the evaluation management of diverticulitis. Plan: Acute diverticulitis, recurrent CT abdomen: Mild acute diverticulitis of the sigmoid colon, hepatomegaly with a fatty infiltration, fecal retention in the colon consistent with constipation and renal cysts bilaterally Normal WBC count, follow up with CRP and ESR Continue IV fluids at 100 cc/hour Started the patient on IV ciprofloxacin and IV Flagyl Colace b.i.d., Culturelle b.i.d. Consider consulting with GI in view of recurrent episodes CKD stage IIIB Creatinine: 1.02 EGFR: 53 Patient states that she has CKD stage IIIB but looks like her EGFR does not correlate with that, please re-evaluate Continue IV fluids at 100 cc/hour AFib status post pacemaker placement Continue apixaban, diltiazem HTN Continue torsemide 20 mg daily Hypothyroidism Follow up with TSH Continue levothyroxine 88 mcg COPD not in acute exacerbation DuoNeb q.4h p.r.n. Dementia Anxiety/depression Continue sertraline, ropinirole, memantine, Cariprazine hydrochloride Code status: Full code Diet: Clear liquids DVT prophylaxis: SCD Disposition: Admit to ortho, evaluate with the patient requires any GI consult Nik White MD Internal Medicine, PGY 1 Patient Evaluated using HIPPA complaint AV device Agree with plan as discussed with resident Daljit Salomon MD Date of Service: Sep 25, 2024 Billing Provider: DALJIT SALOMON MD, SIVA, RES Sep 25, 2024 23:06 DALJIT SALOMON MD Sep 26, 2024 01:05
[2024-09-25] MEDS: normal saline 1000ml 1,000 ML IV SCH (23:10)
[2024-09-25] MEDS ORDERED: ipratropium/albuterol 3ml nebule NEB PRN (23:20)
[2024-09-25] MEDS: ciprofloxacin lact 400MG/200ML 200 ML IV SCH (23:34)
[2024-09-25] MEDS: ciprofloxacin lact 400MG/200ML 200 ML IV ONE (23:34)
[2024-09-25 23:38] VITALS: PULSE 64; RESP 16; O2SAT 97
[2024-09-26] VITALS (7 sets, daily range): BP systolic 116–159; BP diastolic 51–64; PULSE 60–82; RESP 14–19; TEMP 97.2–97.9; O2SAT 9–96
[2024-09-26 00:07] LABS: C-REACTIVE PROTEIN 5.65 MG/DL (0.0-0.5); THYROID STIMULATING HORMONE 3.32 ulU/ml (0.34-4.50)
--- NOTE | 2024-09-26 00:09 | RADIOLOGY REPORT ---
CHEST RADIOGRAPH Indication: normal examination Technique: Single frontal view of the chest was obtained COMPARISON: DI CHEST,SINGLE VIEW on DOS: 07/14/23 FINDINGS: Lines and Tubes: None. Left anterior chest wall dual lead cardiac pacing device redemonstrated. Lungs: Clear Pleura: No effusion. No pneumothorax. Cardiomediastinal contours: Unremarkable Bones: Unremarkable IMPRESSION: 1. No acute disease.
[2024-09-26 04:35] LABS: EOSINOPHILS # (AUTO) 0.1 X10'3 (0-0.9); EOSINOPHILS % (AUTO) 3.1 % (0-6); HEMOGLOBIN 10.8 g/dl (12.0-16.0); LYMPHOCYTES # (AUTO) 0.8 X10'3 (1.1-4.8); LYMPHOCYTES % (AUTO) 18.3 % (21-51); MEAN CORPUSCULAR HEMOGLOBIN 31.6 PG (27.0-31.0); MEAN CORPUSCULAR HGB CONC 33.9 g/dL (33.0-36.5); MEAN CORPUSCULAR VOLUME 93.4 FL (78-98); MEAN PLATELET VOLUME 7.2 FL (7.4-10.4); MONOCYTES # (AUTO) 0.5 X10'3 (0-0.9); MONOCYTES % (AUTO) 10.8 % (2-12); NEUTROPHILS # (AUTO) 3.1 X10'3 (1.8-7.7); NEUTROPHILS % (AUTO) 66.8 % (42-75); PLATELET COUNT 108 X10'3 (140-440); RED BLOOD COUNT 3.42 X10'6 (4.20-5.60); RED CELL DISTRIBUTION WIDTH 14.5 % (11.5-14.5); WHITE BLOOD COUNT 4.6 X10'3 (4.5-11.0)
[2024-09-26] MEDS: metroNIDAZOLE-Flagyl 500mg/NS 100 ML IV SCH (04:36)
[2024-09-26 04:51] LABS: ALANINE AMINOTRANSFERASE 16 U/L (12-78); ALBUMIN 2.9 G/DL (3.4-5.0); ALBUMIN/GLOBULIN RATIO 0.9 (1.1-1.5); ALKALINE PHOSPHATASE 74 IU/L (46-116); ANION GAP 8 (8-16); ASPARTATE AMINO TRANSFERASE 17 U/L (10-37); BILIRUBIN,TOTAL 0.9 MG/DL (0.1-1.0); BLOOD UREA NITROGEN 16 MG/DL (7-18); BUN/CREATININE RATIO 15.2 (10.0-20.0); CALCIUM 8.8 MG/DL (8.5-10.1); CHLORIDE 106 MMOL/L (99-107); CREATININE 1.05 MG/DL (0.40-0.90); GLUCOSE 110 MG/DL (70-104); MAGNESIUM 2.3 MG/DL (1.5-2.4); POTASSIUM 3.6 MMOL/L (3.5-5.1); SODIUM 146 MMOL/L (135-145); TOTAL CARBON DIOXIDE 32.5 MMOL/L (24-32); TOTAL PROTEIN 6.2 G/DL (6.4-8.2); eCRCL 41 ML/MIN; eGFR 51 ML/MIN
[2024-09-26] MEDS: memantine 5mg tablet PO SCH (07:04)
[2024-09-26] MEDS: lactobacillus rhamnosus 10,000 MMU CELLS/CAPSULE PO SCH (07:04)
[2024-09-26] MEDS: diltiazem CD 120mg capsule (once-daily) PO SCH (07:05)
[2024-09-26] MEDS: sertraline 50mg tablet PO SCH (07:05)
[2024-09-26] MEDS: levoTHYROXINE 88mcg tablet PO SCH (07:05)
[2024-09-26] MEDS: apixaban 5mg tablet PO SCH (07:06)
[2024-09-26] MEDS: docusate sod 100mg capsule PO SCH (07:09)
[2024-09-26] MEDS: K and/or MAG REPLACEMENT MC SCH (07:24)
[2024-09-26] MEDS ORDERED: docusate sod 100mg capsule PO SCH (08:00)
[2024-09-26] MEDS: ondansetron/PF 4mg/2ml inj IV PRN (10:38)
[2024-09-26] MEDS: clonazePAM 0.5mg tablet PO PRN (20:31)
--- NOTE | 2024-09-26 22:38 | PROGRESS NOTE ---
Daily Progress Note Providers to CC ~ Antibiotic Timeout Antibiotic Ordered?: Yes Subjective The patient was states he feels better since starting IV antibiotics the patient has a normal white blood cell count in his afebrile. Objective Vital Signs Date Time Temp Pulse Resp B/P (MAP) Pulse Ox O2 Delivery O2 Flow Rate FiO2 09/26/24 21:12 82 14 90 Room Air* 0 21 09/26/24 18:00 97.2 159/56 (90) Result Diagram: 09/26/2441209/26/24412 Gen. No acute distress alert and oriented 4 Lungs clear to ascultation bilaterally, no wheezes rales or rhonchi appreciated Heart normal sinus rhythm no murmurs rubs or clicks noted Abdomen soft nontender bowel sounds are normoactive Lower extremities no clubbing cyanosis, nor edema appreciated bilaterally Problem\Assessment\Plan Acute diverticulitis, recurrent CT abdomen: Mild acute diverticulitis of the sigmoid colon, hepatomegaly with a fatty infiltration, fecal retention in the colon consistent with constipation and renal cysts bilaterally Normal WBC count, follow up with CRP and ESR Continue IV fluids at 100 cc/hour Started the patient on IV ciprofloxacin and IV Flagyl Colace b.i.d., Culturelle b.i.d. 09/26 the patient was feeling better I discussed the case with Dr. Conway- who recommended that the patient does not necessarily need a partial colectomy in the future and she can continue receiving IV antibiotics as needed or can follow up in his office. The patient was mother had a partial colectomy secondary to diverticulitis CKD stage IIIB Creatinine: 1.02 EGFR: 53 Patient states that she has CKD stage IIIB but looks like her EGFR does not correlate with that, please re-evaluate Continue IV fluids at 100 cc/hour AFib status post pacemaker placement Continue apixaban, diltiazem HTN Continue torsemide 20 mg daily Hypothyroidism TSH is 3.32 normocephalic/ atraumatic/ eomi/ no focal deficits noted Continue levothyroxine 88 mcg COPD not in acute exacerbation DuoNeb q.4h p.r.n. Dementia Anxiety/depression Continue sertraline, ropinirole, memantine, Cariprazine hydrochloride Date of Service: Sep 26, 2024 Billing Provider: JOSETTE MORALES DO Common Visit Codes: [id number] INP/OBS CARE(HIGH) JOSETTE MORALES DO Sep 26, 2024 22:38
--- NOTE | 2024-09-27 05:57 | PROGRESS NOTE ---
Progress Note Dictate Providers to CC CC: KELLEY BROOKE MD ~ Progress Note: Patient with recurrent, mild acute diverticulitis Uncomplicated I see no laboratory or radiographic findings that would meet indications for admission to the hospital This can be treated as an outpatient with oral antibiotics, although, I do not actually see any findings that would warrant this either Patient currently on a regular diet and tolerating No overt concerning findings at this time from a surgical standpoint Indications for surgical intervention regarding sigmoid diverticular disease (urgent): -complicated: (free perforation with generalized peritonitis, progressing sepsis with failure of conservative treatment or uncontrolled hemorrhage) Elective indications: -fistula formation -Symptomatic colonic strictures -Persistent symptoms despite medical management Relative indications: -recurrent complicated diverticulitis -multiple recurrences impacting quality of life -immunocompromised patients at higher complication risk In this patient, the only possible relative indication would be multiple recurrences impacting quality of life. Patient is welcome to follow up with me to discuss surgical options as an outpatient. Antibiotic Ordered?: Yes Objective Vitals Vital Signs Date Time Temp Pulse Resp B/P (MAP) Pulse Ox O2 Delivery O2 Flow Rate FiO2 09/26/24 22:00 97.6 74 16 116/51 (72) 94 Room Air 09/26/24 21:12 0 21 Lab Results: 09/26/24 0413 09/26/24 0413 KELLEY BROOKE MD Sep 27, 2024 05:57
[2024-09-27 06:00] VITALS: BP 157/82; PULSE 94; RESP 18; TEMP 97.7; O2SAT 96
[2024-09-27 06:19] LABS: BASOPHILS % (AUTO) 0.6 % (0-1); EOSINOPHILS # (AUTO) 0.2 X10'3 (0-0.9); HEMATOCRIT 32.3 % (35.0-45.0); HEMOGLOBIN 11.1 g/dl (12.0-16.0); LYMPHOCYTES # (AUTO) 0.7 X10'3 (1.1-4.8); LYMPHOCYTES % (AUTO) 13.6 % (21-51); MEAN CORPUSCULAR HEMOGLOBIN 32.3 PG (27.0-31.0); MEAN CORPUSCULAR HGB CONC 34.5 g/dL (33.0-36.5); MEAN CORPUSCULAR VOLUME 93.8 FL (78-98); MEAN PLATELET VOLUME 7.8 FL (7.4-10.4); MONOCYTES # (AUTO) 0.5 X10'3 (0-0.9); MONOCYTES % (AUTO) 9.3 % (2-12); NEUTROPHILS # (AUTO) 3.9 X10'3 (1.8-7.7); NEUTROPHILS % (AUTO) 73.5 % (42-75); PLATELET COUNT 126 X10'3 (140-440); RED BLOOD COUNT 3.45 X10'6 (4.20-5.60); RED CELL DISTRIBUTION WIDTH 14.5 % (11.5-14.5); WHITE BLOOD COUNT 5.2 X10'3 (4.5-11.0)
[2024-09-27 06:38] LABS: ALANINE AMINOTRANSFERASE 16 U/L (12-78); ALBUMIN 3.3 G/DL (3.4-5.0); ALKALINE PHOSPHATASE 75 IU/L (46-116); ANION GAP 12 (8-16); ASPARTATE AMINO TRANSFERASE 28 U/L (10-37); BLOOD UREA NITROGEN 12 MG/DL (7-18); BUN/CREATININE RATIO 9.2 (10.0-20.0); CALCIUM 8.3 MG/DL (8.5-10.1); CHLORIDE 105 MMOL/L (99-107); CREATININE 1.31 MG/DL (0.40-0.90); GLUCOSE 125 MG/DL (70-104); MAGNESIUM 1.7 MG/DL (1.5-2.4); POTASSIUM 3.2 MMOL/L (3.5-5.1); SODIUM 145 MMOL/L (135-145); TOTAL CARBON DIOXIDE 28.5 MMOL/L (24-32); TOTAL PROTEIN 6.5 G/DL (6.4-8.2); eCRCL 33 ML/MIN; eGFR 39 ML/MIN
[2024-09-27 07:13] VITALS: PULSE 74; RESP 16; O2SAT 98
[2024-09-27 08:00] VITALS: RESP 16; O2SAT 98
[2024-09-27] MEDS ORDERED: CARIPRAZINE HYDROCHLORIDE PO SCH (08:00)
[2024-09-27] MEDS: potassium Cl 20 mEq SR tablet PO PRN (09:45)
[2024-09-27 10:00] VITALS: BP 123/68; PULSE 64; RESP 16; TEMP 97.7; O2SAT 95
[2024-09-27] MEDS ORDERED: CIPR-113 PO (15:30)
[2024-09-27] MEDS ORDERED: METR-159 PO (15:30)
--- NOTE | 2024-09-27 20:34 | DISCHARGE SUMMARY ---
Discharge Summary Providers to CC ~ Discharge Summary Admission Diagnosis: Acute diveticulitis Hospital Course DATE OF ADMISSION: 09/25/2024 DATE OF DISCHARGE: 09/27/2024 Discharge Diagnosis\\Comment: Acute diverticulitis, chronic stage 3 kidney disease, permanent AFib, hypertension, hypothyroidism, COPD not in acute exacerbation, anxiety depression Operations\\Procedures: None Consultants: Dr. Warren Conway general surgeon Complications: None Condition on DC: Stable New Medications: Ciprofloxacin Hcl (Cipro) 500 Mg Tablet 1 TAB PO Q12H, #10 TAB Metronidazole* (Flagyl*) 500 Mg Tablet 1 TAB PO Q8H, #15 TAB Continued Medications: Apixaban (Eliquis) 5 Mg Tablet 5 MG PO BID, TAB Cariprazine Hydrochloride (Vraylar) 1.5 Mg Capsule 1 CAP PO MWF for 30 Days, #30 CAP 0 Refills Clonazepam (Klonopin) 0.5 Mg Tablet 1 TAB PO HSMR1 PRN for anxiety for 30 Days, #60 TAB 0 Refills Cyanocobalamin* (Vitamin B-12*) 500 Mcg Tablet 2 TAB PO BID, TAB Diltiazem Hcl (Cardizem Cd) 120 Mg Cap.sr.24h 1 CAP PO DAILY for 30 Days, #30 CAP 0 Refills Fluticasone/Umeclidin/Vilanter (Trelegy Ellipta 100-62.5-25) 100-62.5 Blst.w.dev 1 PUFFS INH DAILY for 30 Days, #1 EA 0 Refills Lactobacillus Rhamnosus (Culturelle) 10 Billion Cell Capsule 1 CAP PO DAILY for 30 Days, #30 CAP 0 Refills Levothyroxine Sodium* (Synthroid*) 88 Mcg Tablet 1 TAB PO DAILY for 30 Days, #30 TAB Memantine Hcl* (Namenda*) 5 Mg Tablet 2 TAB PO BID, TAB Olmesartan Medoxomil (Olmesartan Medoxomil) 5 Mg Tablet DAILY ONDANSETRON ODT 4mg tablet (Ondansetron Odt) 4 Mg Tab.rapdis 4 MG PO TID PRN for nausea/vomiting for 10 Days, #10 TAB Potassium Chloride (Klor-Con) 10 Meq Tab.prt.sr 2 TAB PO BID, TAB Ropinirole Hcl (Ropinirole Hcl) 4 Mg Tab.er.24h 1 TAB PO TID for 30 Days, #30 TAB 0 Refills Sertraline Hcl* (Zoloft*) 25 Mg Tablet 4 TAB PO DAILY for 30 Days, #30 TAB 0 Refills Torsemide (Torsemide) 20 Mg Tablet 2 TAB PO DAILY PRN for SOB or wheezing for 30 Days, #30 TAB 0 Refills Tramadol HCl (Tramadol HCl) 50 Mg Tablet 1 TAB PO Q12H PRN PRN for pain for 30 Days, #60 TAB Discharge Summary: The patient was admitted by resident physician MARILUZ Bro under the supervision of ALIDA Abebe MD with the following HPI:"A 74-year-old female with past medical history of AFib status post pacemaker placement, CKD stage IIIB presented to the ED with pain in the left lower quadrant associated with nausea. Patient states that she had dull and aching constant pain in her left lower abdominal with a severity of 8/10 since last three days, with no radiation or aggravating or relieving factors. Patient has associated nausea and fever with the highest noted as 101 F since last two days. Patient also has asso ciated chills but denies vomitings and diarrhea. Patient had been dealing with similar episodes since age of 18 years. Patient underwent upper GI endoscopy Dr. Mahajan but does not remember the findings and colonoscopy four years ago which revealed polyps and diverticulitis." I saw the patient in the morning after admission and her pain was significantly improved and was afebrile the patient felt a lot better as well and when I rounded on the patient the following morning the patient felt well and was ready to be discharged home. The patient has a mild hypokalemia with serum potassium of 3.3 is on potassium supplementation at home and recommended to recheck a basic metabolic panel in one-week the patient was discharged with a ciprofloxacin and metronidazole for an additional five days. The patient has chronic COPD there was no signs of acute exacerbation during hospitalization. The patient has a acute kidney injury it is undetermined if the patient had acute kidney injury on admission. Patient has permanent atrial fibrillation and was rate controlled she remains on diltiazem and apixaban for DVT and stroke prophylaxis Gen. No acute distress alert and oriented 4 Lungs clear to ascultation bilaterally, no wheezes rales or rhonchi appreciated Heart normal sinus rhythm no murmurs rubs or clicks noted Abdomen soft nontender bowel sounds are normoactive Lower extremities no clubbing cyanosis, nor edema appreciated bilaterally The patient felt ready to be discharged and was medically cleared to be disch arged on 09/27/2024 The patient was seen and evaluated on day of discharge. Time spent on discharge 35 minutes *Problems/Diagnosis: (1) Diverticulitis large intestine w/o perforation or abscess w/bleeding Status: Acute Total Time Spent on D/C: > 30 Minutes Date of Service: Sep 27, 2024 Billing Provider: JOSETTE MORALES DO Common Visit Codes: 51916-SYY/OBS DISCH DAY >30min JOSETTE MORALES DO Sep 27, 2024 20:34
== END 2024-09-27 17:13 | disposition home or self-care (01) | DRG 391 ==
LOC: ER 13:54 → ED HOLD 19:32 → SUR 3N 21:25
PROVIDERS: ADMIT Internal Medicine; ATTEND Family Medicine
PROC: BW211ZZ Computerized Tomography (CT Scan) of Abdomen and Pelvis using Low Osmolar Contrast (ICD-10-PCS; principal; 2024-09-25)
DX: K57.32 Diverticulitis of large intestine without perforation or abscess without bleeding (principal); N17.0 Acute kidney failure with tubular necrosis; N18.32 Chronic kidney disease, stage 3b; I48.91 Unspecified atrial fibrillation; J44.9 Chronic obstructive pulmonary disease, unspecified; I12.9 Hypertensive chronic kidney disease with stage 1 through stage 4 chronic kidney disease, or unspecified chronic kidney disease; F03.90 Unspecified dementia, unspecified severity, without behavioral disturbance, psychotic disturbance, mood disturbance, and anxiety; Z88.1 Allergy status to other antibiotic agents; Z88.5 Allergy status to narcotic agent; Z88.2 Allergy status to sulfonamides; Z88.7 Allergy status to serum and vaccine; Z79.01 Long term (current) use of anticoagulants; Z79.899 Other long term (current) drug therapy; Z95.0 Presence of cardiac pacemaker; Z90.49 Acquired absence of other specified parts of digestive tract; Z90.710 Acquired absence of both cervix and uterus; Z90.13 Acquired absence of bilateral breasts and nipples
CPT/HCPCS: 36415; 71045; 74177; 80053; 81003; 83690; 83735; 84443; 85025; 85651; 86140; 87081; 94760; 96365; 96368; 99285; G0378; J0131; J0696; J0744; J2405; J3490; J7030; Q9967

== ENCOUNTER 2025-03-21 18:00 | Emergency (ER) | payer MEDICARE, MEDICAID ==
[~2025-03-21] VITALS: Ht 165.1 cm; Wt 102.3 kg
[~2025-03-21 18:00] MED LIST changes: -ANAS1TAB49 PO; -APRE30TA5 PO; -CELE-193 PO; +CIPR-113 PO; -FEBU80TA6 PO; +METR-159 PO; -PANT-47 PO
[2025-03-21 18:23] VITALS: BP 148/89; PULSE 60; RESP 16; O2SAT 95
[2025-03-21 19:02] LABS: LEUKOCYTE ESTERASE ,URINE SMALL (Neg); NITRITES, URINE NEGATIVE (Neg); OCCULT BLOOD,URINE NEGATIVE (Neg)
[2025-03-21 19:25] LABS: UA COLLECTION TYPE NON-SPECIFIED
[2025-03-21 19:27] LABS: SQUAMOUS EPITHELIAL CELL,UR FEW /LPF (FEW)
--- NOTE | 2025-03-21 20:34 | Physician Documentation ---
History of Present Illness ~ Chief Complaint: Urinary Symptoms Stated Complaint: UTI Time Seen by MD: 18:35 HPI Very pleasant 74-year-old female that presents to the emergency department for evaluation of UTI. Patient reports that she has significant kidney history is followed by chief compliance officer. She reports that she has gotten pyelonephritis so many times that her chief compliance officer since her home with at home UA strips to test for infection. Patient reports that she tested she had some abnormalities on the home test strip. Bankruptcy Assistant told her to come in and get tested. Today she is negative for an over UTI. But we are going to send her with the antib iotics and have her pick them up if her symptoms persist or she develops dysuria flank pain fever chills nausea vomiting diarrhea or if her chief compliance officer asked her to pick it up and take the medication preemptively. Medication Reconciliation Allergies: Coded Allergies: erythromycin base (Unverified Allergy, Severe, ANAPHYLAXIS, 03/21/25) Sulfa (Sulfonamide Antibiotics) (Unverified Allergy, Intermediate, HIVES, 03/21/25) tetanus and diphtheria toxoids (Unverified Allergy, Intermediate, HIVES, 03/21/25) codeine (Verified Allergy, Unknown, 03/21/25) Uncoded Allergies: ERYTHROMYCIN (Allergy, Unknown, 07/14/23) SULFA (Allergy, Unknown, 07/14/23) Scheduled Apixaban (Eliquis), 5 MG PO BID, (Reported) Cariprazine Hydrochloride (Vraylar), 1 CAP PO MWF, (Reported) Ciprofloxacin Hcl (Cipro), 1 TAB PO Q12H Cyanocobalamin* (Vitamin B-12*), 2 TAB PO BID, (Reported) Diltiazem Hcl (Cardizem Cd), 1 CAP PO DAILY, (Reported) Fluticasone/Umeclidin/Vilanter (Trelegy Ellipta 100-62.5-25), 1 PUFFS INH DAILY, (Reported) Lactobacillus Rhamnosus (Culturelle), 1 CAP PO DAILY Levothyroxine Sodium* (Synthroid*), 1 TAB PO DAILY, (Reported) Memantine Hcl* (Namenda*), 2 TAB PO BID, (Reported) Metronidazole* (Flagyl*), 1 TAB PO Q8H Olmesartan Medoxomil (Olmesartan Medoxomil), DAILY, (Reported) Potassium Chloride (Klor-Con), 2 TAB PO BID, (Reported) Ropinirole Hcl (Ropinirole Hcl), 1 TAB PO TID, (Reported) Sertraline Hcl* (Zoloft*), 4 TAB PO DAILY, (Reported) Scheduled PRN Clonazepam (Klonopin), 1 TAB PO HSMR1 PRN for anxiety, (Reported) ONDANSETRON ODT 4mg tablet (Ondansetron Odt), 4 MG PO TID PRN for nausea/vomiting Torsemide (Torsemide), 2 TAB PO DAILY PRN for SOB or wheezing, (Reported) Tramadol HCl (Tramadol HCl), 1 TAB PO Q12H PRN PRN for pain, (Reported) Past Medical History Past Medical History: Atrial Fibrillation, Diverticulitis, Renal Disease Past Surgical History: noncontributory Alcohol Use: None Drug Use: none Lives with: Spouse Lives In: Home Occupation: retired Review of Systems ROS As stated above in the HPI, otherwise all systems are reviewed and negative. Physical Exam Vital Signs: Temperature: 97.6, Source: Temporal, Heart Rate: 60, Respiratory Rate: 16, BP: 148/89, Pulse Oximetry: 95, Weight: 102.300 Physical Exam VITALS: Reviewed and as above. GENERAL: Alert, no apparent distress. HEENT: Normocephalic, atraumatic, PERRL, EOMI, dry mucosa, no erythema RESPIRATORY: Lungs clear, normal breath sounds, no respiratory distress. CHEST: No accessory muscle use, no retractions CV: Regular rate, rhythm, no edema, no murmur, No: JVD GI: Soft, non-tender, bowels sounds present, no rebound, guarding, or rigidity BACK: No CVA tenderness, or swelling MUSCULOSKELETAL No deformities, no edema SKIN: Warm and dry, no rash NEURO: Oriented x4, No motor or sensory deficit PSYCH: Normal mood and affect, no agitation Progress Results/Orders Results/Orders Vital Signs 03/21/25 18:23 Temp 97.6 Pulse 60 Resp 16 B/P (MAP) 148/89 Pulse Ox 95 Laboratory Tests Test 03/21/25 16:20 Urine Specimen Description Non-specified Urine Color Yellow Urine Clarity Clear Urine pH 5.5 Urine Specific [place] 1.015 Urine Protein Negative Urine Glucose (UA) Negative Urine Ketones Negative Urine Occult Blood Negative Urine Nitrite Negative Urine Bilirubin Negative Urine Urobilinogen 0.2 Urine Leukocyte Esterase Small H Urine RBC 0-2 Urine WBC 0-4 Urine Squamous Epithelial Cells Few Urine Bacteria Few Urine Culture Indicated Indicated Volume Urine Centrifuged 10 ml Urine Comment Medical Decision Making Additional information obtaine: other Findings MEDICAL DECISION MAKING Number of Problems Addressed: Multiple (chronic kidney disease, history of recurrent pyelonephritis, evaluation for urinary tract infection) Amount and Complexity of Data Reviewed: Urinalysis performed and reviewed. Patient's home urinalysis strip results considered in clinical context. Patient's chief compliance officer consulted regarding presentation. Risk of Complications, Morbidity, and Mortality: Moderate to high risk given significant chronic kidney disease with nephrology follow-up and history of recurrent pyelonephritis. Clinical Assessment and Plan: This 74-year-old female with significant chronic kidney disease followed by nephrology and history of recurrent pyelonephritis presented to the emergency department for evaluation of possible urinary tract infection based on abnormal home urinalysis strip. She monitors herself at home with urinalysis strips given her recurrent infection history. Her chief compliance officer recommended emergency department evaluation based on these findings. Diagnostic Evaluation: In-hospital urinalysis was performed and was negative for overt urinary tract infection. In older women with low pretest probability, a negative dipstick for leukocyte esterase and nitrites effectively excludes infection. Given her asymptomatic presentation and negative testing, this likely represents asymptomatic bacteriuria, which is common in older women and should not be treated. Treatment Plan: The patient will be discharged without immediate antibiotic th erapy. However, given her history Urinary Diff Dx:Considerations: Include: AAA, , Aortic dissection, Appendicitis, Bowel obstruction, Cholelithiasis, Choleangitis, DJD, Ectopic , Hepatitis, HNP, Impaction, Intrauterine , Musculoskeletal pain, Ovarian torsion, Pancreatitis, PID, Post-Op complication, Pyelonephritis, Renal failure, Strain, Urinary Obstruction, Urolithiasis, Urinary retention, UTI, Vaginitis, Other Genital Diff Dx:Considerations: Include: -Complete, - Incomplete, -Inevitable, Ablortion-Missed, -Threatened, Abruptio placentae, Bartholin abscess, Bartholin cyst, Blood loss anemia, Constipation, Cervicitis, Dsymenorrhea, Ectopic , Foreign body, Hormonal, Hidradenitis suppurativa, Intrauterine , Menorrhagia, Menometrorrhagia, Menstrual bleeding, Myomatous uterus, Perianal abscess, Physiologic discharge, Pinworms, PID, Placenta previa, , Precipitous Hct, Trauma, UTI, Vaginit is(osis)-Atrophic, Vaginitis, Vaginitis(osis)-Bacterial, Vaginitis(osis)- Candidal, Vaginitis(osis)-Contact, Vaginitis(osis)-Herpes, Vaginitis(osis)- Trich., Other Departure Disposition: HOME / SELF CARE / HOMELESS Impression: Primary Impression: Acute urinary tract infection Condition: Stable Discharge Instructions: Dysuria Additional Instructions: This 74-year-old female with chronic kidney disease, recurrent pyelonephritis, and ongoing nephrology follow-up presented to the emergency department for evaluation of a urinary tract infection. Her urinalysis was negative for overt UTI, so she is being discharged with a prescription for cephalexin 500 mg four times daily for seven days, to be used only if symptoms persist, worsen, or if i nstructed by her chief compliance officer. Discharge Instructions: Do not start antibiotics unless symptoms develop or worsen, or if specifically instructed by nephrology. Symptoms that should prompt antibiotic initiation or urgent medical attention include: dysuria, fever, chills, flank pain, nausea, vomiting, diarrhea, or new/worsening confusion. If these symptoms occur, begin cephalexin as prescribed and notify your chief compliance officer. Do not treat asymptomatic bacteriuria. Antibiotics are not recommended for positive urine tests without symptoms, per Infectious Diseases Society of [place] guidelines and kidney disease recommendations. If possible, obtain a urine culture before starting antibiotics to guide therapy and minimize resistance. Antibiotic Use and Renal Considerations: Cephalexin dosing may need adjustment for kidney disease. Standard dosing is 500 mg every 12 hours or 250 mg every 6 hours, but in patients with reduced creatinine clearance, lower or less frequent dosing may be required (e.g., 250 mg every 824 hours depending on renal function). Monitor for side effects such as rash, diarrhea, or signs of toxicity. Elderly patients with CKD are at increased risk for adverse drug reactions. Monitor for new symptoms and report any concerns promptly. Follow-Up and Safety Precautions: Contact nephrology for close follow-up. If symptoms do not improve after 48 hours of antibiotics, or if they worsen, seek medical attention. Be vigilant for risk factors for urosepsis, including diabetes, indwelling urina ry catheter, and infection with Klebsiella or E. coli, which increase risk in CKD patients. Additional Notes: Optimal antibiotic selection and dosing may depend on local resistance patterns and the patients most recent renal function. These should be reviewed with nephrology as needed. Summary: Only start cephalexin if symptoms develop or worsen, monitor for side effects, adjust dosing for kidney function, and maintain close follow-up with nephrology. Seek urgent care for severe or persistent symptoms. Would you like me to review the most recent renal function tests and creatinine clearance to ensure the cephalexin dosing is appropriately adjusted for her current level of kidney function? Referrals: NO PRIMARY CARE PROVIDER (PCP) Prescriptions Cephalexin*Monohydrate* (Keflex*) 500 Mg Capsule 1 CAP PO QID for 7 Days, #28 CAP Prov: SULTANA ROCK 03/21/25 Education Educated: Patient Educated regarding: diagnosis, treatment, need for follow up Signature Scribe Signature: A Attestation: Scribed for Sultana Rock by TRUONG Prakash . 03/21/25 20:39 SULTANA ROCK Mar 21, 2025 20:34
[2025-03-21] MEDS ORDERED: CEPH-585 PO (20:35)
[2025-03-21 21:00] VITALS: TEMP 97.6
== END 2025-03-21 21:00 | disposition home or self-care (01) ==
LOC: ER 18:01
DX: N39.0 Urinary tract infection, site not specified (principal); I48.91 Unspecified atrial fibrillation; Z88.2 Allergy status to sulfonamides; Z88.5 Allergy status to narcotic agent; Z88.1 Allergy status to other antibiotic agents; Z79.899 Other long term (current) drug therapy
CPT/HCPCS: 81001; 87088; 99283